=== PATIENT | female | born 1945 | race Caucasian/White ===

== ENCOUNTER 2022-08-16 02:45 | Emergency (ER) | payer MEDICARE, OTHER ==
[~2022-08-16] VITALS: Ht 162.6 cm; Wt 51.7 kg
--- NOTE | 2022-08-16 03:11 | NUR ---
[id number] FROM HOME C/O NAUSEA AND VOMITING WHICH STARTED ABOUT 24 HOURS PRODUCT MANAGEMENT INTERN. PT IS AAO X 4, BREATHING UNLABORED, SATURATION 98% ON ROOM AIR. HR IS 80. PT DENIES ABDOMINAL PAIN AND DIARRHEA. PT WITH HX OF CVA 2 MONTHS AGO, WITH LEFT SIDED DEFICITS. PT ATTACHED TO MONITOR AND PULSE OX. AWAITING MD ART. Addendum: 08/16/22 at 0402 by ANAHY PATIENT IS AO X 2
[2022-08-16] MEDS ORDERED: ONDANSETRON 4 MG TAB.RAPDIS ONE (03:22)
[2022-08-16] MEDS ORDERED: ONDANSETRON 4 MG TAB.RAPDIS SL ONE (03:30)
--- NOTE | 2022-08-16 03:58 | NUR ---
PO CHALLENGE DONE, PT ABLE TO TOLERATE SIPS OF WATER, HOWEVER, PT KEEPS SAYING HELP ME TO THROW UP WHILE PUTTING HER FINGERS IN HER MOUTH WHICH APPEARS LIKE SELF INDUCED GAGGING. DR MCMILLAN MADE AWARE
[2022-08-16] MEDS ORDERED: ONDA4TAB11 PO (03:59)
--- NOTE | 2022-08-16 04:34 | NUR ---
Kasie giron in [facility] - 08/16/22 at 0439 by NATE BED [id number]
--- NOTE | 2022-08-16 04:47 | NUR ---
LIVES WITH [facility] [place] [phone] [place] [id number] [facility] [address] (SECOND FLOOR), [place]
--- NOTE | 2022-08-16 04:50 | NUR ---
[facility] ETA [phone]
--- NOTE | 2022-08-16 06:01 | NUR ---
Patient discharged to home in stable condition. Written and verbal after care instructions given. Patient verbalizes understanding of instruction. Patient picked up by daughter, VS WNL.
[2022-08-16 06:02] VITALS: BP 166/94
== END 2022-08-16 06:02 | disposition home or self-care (01) ==
LOC: ER 02:48
DX: R11.2 Nausea with vomiting, unspecified (principal); Z79.899 Other long term (current) drug therapy
CPT/HCPCS: 99283; Q0162